=== PATIENT | male | born 1955 | race African-American/Black ===

== ENCOUNTER 2017-04-30 09:05 | Inpatient (IN) ==
[2017-04-30 11:05] LABS: Apearance,Urine Slightly Hazy (Clear); Bacteria,Urine Occasional /HPF (Few); Bilirubin,Urine Negative (Negative); Blood, Urine Large mg/dL (Negative); Glucose,Urine (UA) 50 mg/dL (Negative); Ketones,Urine Negative (Negative); Mucus,Urine Occasional /LPF (Occasional); Nitrite,Urine Negative (Negative); Protein,Urine Negative; RBC,Urine 18 /HPF (0-4); Squamous Epithelial Cell,Urine Occasional /HPF (0-10); Urine Color Yellow (Yellow); Urine Specific Gravity 1.009 (1.001-1.035); Urine Urobilinogen < 2.0 EU/DL (0.2-1.0); WBC,Urine 6 /HPF (0-6)
[2017-04-30 11:38] LABS: Basophils % 0.2 % (0.0-0.8); Hematocrit 45.2 VOL% (42.0-52.0); Hemoglobin 15.4 GM/DL (14.0-18.0); Immature Granulocytes % 0.5 %; Immature Granulocytes Absolute 0.06 #; Lymphocytes # 1.1 10*3/uL (1.4-4.0); Lymphocytes % 8.5 % (21.2-54.2); Mean Corpuscular HGB Conc 34.1 GM/DL (32-36); Mean Corpuscular Hemoglobin 28 PG (27-34); Mean Corpuscular Volume 82.2 FL (87-102); Mean Platelet Volume 9.7 FL (9.6-12.0); Monocytes # 1.1 10*3/uL (0.11-0.8); Monocytes % 8.1 % (1.7-12.7); Neutrophils # 10.9 10*3/uL (1.4-7.4); Neutrophils % 82.7 % (38.7-73.9); Platelet Count 241 T/CUMM (130-400); Red Cell Distribution Width 14.1 % (9.3-17.3); White Blood Count 13.2 T/CUMM (4-12)
[2017-04-30 12:02] LABS: Bilirubin,Total 0.9 MG/DL (0.2-1.0); Calcium 8.6 MG/DL (8.5-10.1); Osmolality,Calculated 283.7 MOS/KG (273-304); Potassium 3.8 MMOL/L (3.5-5.1); Total Protein 7.5 G/DL (6.4-8.3)
[2017-04-30] MEDS ORDERED: SODIUM CHLORIDE 0.9% 500 ML IV STA (12:33)
[2017-04-30] MEDS ORDERED: ACETAMINOPHEN 325 MG TABLET PO PRN (13:44)
[2017-04-30] MEDS ORDERED: MORPHINE 2 MG/1 ML SYRINGE IV PRN (13:44)
[2017-04-30] MEDS ORDERED: ONDANSETRON 4 MG/2 ML VIAL IV PRN (13:44)
[2017-04-30] MEDS: SODIUM CHLORIDE 0.9% 1,000 ML IV SCH (14:33)
[2017-04-30] MEDS: hydrALAZINE 20 MG/1 ML VIAL IV PRN (14:52)
[2017-04-30] MEDS ORDERED: CIPROFLOXACIN INJ 400 MG in PREMIX 1 EACH IV SCH (16:00)
[2017-04-30] MEDS: DUTASTERIDE 0.5 MG CAPSULE PO SCH (20:45)
[2017-04-30] MEDS: TAMSULOSIN 0.4 MG CAPSULE PO SCH (20:45)
[2017-05-01] MEDS: SODIUM CHLORIDE 0.9% 1,000 ML IV SCH ×3 (00:12→20:58)
[2017-05-01 06:16] LABS: Basophils % 0.3 % (0.0-0.8); Eosinophils # 0.2 10*3/uL (0.0-0.87); Eosinophils % 2.6 % (0.00-10.9); Hemoglobin 14.9 GM/DL (14.0-18.0); Immature Granulocytes % 0.7 %; Immature Granulocytes Absolute 0.06 #; Lymphocytes # 1.1 10*3/uL (1.4-4.0); Lymphocytes % 11.8 % (21.2-54.2); Mean Corpuscular HGB Conc 33.1 GM/DL (32-36); Mean Corpuscular Hemoglobin 28 PG (27-34); Mean Corpuscular Volume 83.5 FL (87-102); Mean Platelet Volume 9.9 FL (9.6-12.0); Monocytes # 0.7 10*3/uL (0.11-0.8); Monocytes % 7.9 % (1.7-12.7); Neutrophils % 76.7 % (38.7-73.9); Platelet Count 242 T/CUMM (130-400); Red Blood Count 5.39 MC/CUMM (3.8-5.5); Red Cell Distribution Width 14.4 % (9.3-17.3); White Blood Count 9.2 T/CUMM (4-12)
[2017-05-01 06:46] LABS: Albumin 3.3 G/DL (3.4-5.0); Bilirubin,Total 0.8 MG/DL (0.2-1.0); Calcium 8.2 MG/DL (8.5-10.1); Osmolality,Calculated 295.1 MOS/KG (273-304); Potassium 3.7 MMOL/L (3.5-5.1); Risk Ratio 4.78; Total Protein 6.4 G/DL (6.4-8.3); VLDL CHOLESTEROL 21.8 MG/DL
[2017-05-01] MEDS: TAMSULOSIN 0.4 MG CAPSULE PO SCH ×2 (08:48→20:58)
[2017-05-01] MEDS: PANTOPRAZOLE 40 MG TABLET PO SCH (08:48)
[2017-05-01] MEDS: CIPROFLOXACIN INJ 400 MG in PREMIX 1 EACH IV SCH ×2 (09:21→20:59)
[2017-05-01] MEDS: NIFEdipine 10 MG CAPSULE PO PRN (18:23)
[2017-05-01] MEDS: DUTASTERIDE 0.5 MG CAPSULE PO SCH (20:57)
[2017-05-02 05:16] LABS: Basophils % 0.2 % (0.0-0.8); Eosinophils % 0.1 % (0.00-10.9); Hematocrit 42.9 VOL% (42.0-52.0); Hemoglobin 13.7 GM/DL (14.0-18.0); Immature Granulocytes % 0.7 %; Immature Granulocytes Absolute 0.07 #; Lymphocytes # 0.7 10*3/uL (1.4-4.0); Lymphocytes % 7.2 % (21.2-54.2); Mean Corpuscular HGB Conc 31.9 GM/DL (32-36); Mean Corpuscular Hemoglobin 27 PG (27-34); Mean Corpuscular Volume 84.8 FL (87-102); Mean Platelet Volume 9.4 FL (9.6-12.0); Monocytes # 0.8 10*3/uL (0.11-0.8); Monocytes % 8.8 % (1.7-12.7); Neutrophils # 7.8 10*3/uL (1.4-7.4); Platelet Count 223 T/CUMM (130-400); Red Blood Count 5.06 MC/CUMM (3.8-5.5); Red Cell Distribution Width 14.2 % (9.3-17.3); White Blood Count 9.3 T/CUMM (4-12)
[2017-05-02 05:41] LABS: Calcium 8.2 MG/DL (8.5-10.1); Potassium 3.7 MMOL/L (3.5-5.1)
[2017-05-02] MEDS: SODIUM CHLORIDE 0.9% 1,000 ML IV SCH ×2 (08:50→20:11)
[2017-05-02] MEDS: TAMSULOSIN 0.4 MG CAPSULE PO SCH ×2 (09:20→20:59)
[2017-05-02] MEDS: CIPROFLOXACIN INJ 400 MG in PREMIX 1 EACH IV SCH ×2 (09:20→21:00)
[2017-05-02] MEDS: NIFEdipine 10 MG CAPSULE PO PRN ×2 (09:20→17:30)
[2017-05-02] MEDS: PANTOPRAZOLE 40 MG TABLET PO SCH (09:20)
[2017-05-02] MEDS: DUTASTERIDE 0.5 MG CAPSULE PO SCH (20:59)
[2017-05-03 04:33] LABS: Calcium 8.4 MG/DL (8.5-10.1); Osmolality,Calculated 283.1 MOS/KG (273-304); Potassium 3.7 MMOL/L (3.5-5.1)
[2017-05-03] MEDS: SODIUM CHLORIDE 0.9% 1,000 ML IV SCH ×2 (07:43→19:20)
[2017-05-03] MEDS: TAMSULOSIN 0.4 MG CAPSULE PO SCH ×2 (09:12→20:43)
[2017-05-03] MEDS: PANTOPRAZOLE 40 MG TABLET PO SCH (09:13)
[2017-05-03] MEDS: hydrALAZINE 20 MG/1 ML VIAL IV PRN (09:13)
[2017-05-03] MEDS: CIPROFLOXACIN INJ 400 MG in PREMIX 1 EACH IV SCH ×2 (09:13→20:43)
[2017-05-03] MEDS: CARVEDILOL 25 MG TABLET PO SCH ×2 (13:16→18:37)
[2017-05-03] MEDS ORDERED: NIFEdipine 10 MG CAPSULE PO PRN (14:16)
[2017-05-03] MEDS: LISINOPRIL 10 MG TABLET PO SCH (15:08)
[2017-05-03] MEDS: DUTASTERIDE 0.5 MG CAPSULE PO SCH (20:43)
[2017-05-04 05:11] LABS: Basophils # 0.1 10*3/uL (0.0-0.2); Basophils % 0.8 % (0.0-0.8); Eosinophils % 0.1 % (0.00-10.9); Hematocrit 43.1 VOL% (42.0-52.0); Hemoglobin 13.8 GM/DL (14.0-18.0); Immature Granulocytes % 0.7 %; Immature Granulocytes Absolute 0.06 #; Lymphocytes # 1.4 10*3/uL (1.4-4.0); Lymphocytes % 15.3 % (21.2-54.2); Mean Corpuscular Hemoglobin 27 PG (27-34); Mean Corpuscular Volume 85.5 FL (87-102); Mean Platelet Volume 9.4 FL (9.6-12.0); Monocytes # 0.6 10*3/uL (0.11-0.8); Monocytes % 6.5 % (1.7-12.7); Neutrophils % 76.6 % (38.7-73.9); Platelet Count 264 T/CUMM (130-400); Red Blood Count 5.04 MC/CUMM (3.8-5.5); Red Cell Distribution Width 14.4 % (9.3-17.3); White Blood Count 9.1 T/CUMM (4-12)
[2017-05-04 05:24] LABS: PT Patient Result 10.9 SECS
[2017-05-04 05:35] LABS: Calcium 8.6 MG/DL (8.5-10.1); Osmolality,Calculated 281.3 MOS/KG (273-304); Potassium 3.9 MMOL/L (3.5-5.1)
[2017-05-04 05:40] LABS: Atypical Lymphocytes Few; Eosinophils 4 % (0-10); Lymphocytes 19 % (20-55); Segmented Neutrophils 71 % (50-85); Total Cells Counted 100
[2017-05-04 05:43] LABS: Hypochromasia 1+
[2017-05-04 05:44] LABS: Platelet Estimate Normal
[2017-05-04] MEDS: SODIUM CHLORIDE 0.9% 1,000 ML IV SCH (05:51)
[2017-05-04] MEDS: CIPROFLOXACIN INJ 400 MG in PREMIX 1 EACH IV SCH ×2 (08:28→21:03)
[2017-05-04] MEDS: LISINOPRIL 10 MG TABLET PO SCH (08:32)
[2017-05-04] MEDS: CARVEDILOL 25 MG TABLET PO SCH ×2 (08:32→16:12)
[2017-05-04] MEDS: PANTOPRAZOLE 40 MG TABLET PO SCH (08:33)
[2017-05-04] MEDS: TAMSULOSIN 0.4 MG CAPSULE PO SCH ×2 (08:33→21:02)
[2017-05-04] MEDS: NIFEdipine 10 MG CAPSULE PO PRN (08:37)
[2017-05-04] MEDS ORDERED: cefTRIAXone 1,000 MG in SYRINGE 1 EACH IV ONE (13:00)
[2017-05-04] MEDS ORDERED: ALBUTEROL/IPRATROPIUM 3 ML NEB RESP TX ONE (13:01)
[2017-05-04] MEDS ORDERED: MIDAZOLAM 2 MG/2 ML VIAL ONE (14:52)
[2017-05-04] MEDS ORDERED: PROPOFOL 200 MG/20 ML VIAL IV ONE (14:52)
[2017-05-04] MEDS ORDERED: fentaNYL 100 MCG/2 ML VIAL ONE (14:52)
[2017-05-04] MEDS ORDERED: SEVOFLURANE 1 UNIT/15 MINUTE INH ONE (14:52)
[2017-05-04] MEDS ORDERED: ONDANSETRON 4 MG/2 ML VIAL ONE (14:53)
[2017-05-04] MEDS ORDERED: ePHEDrine 50 MG/ML AMP ONE (14:53)
[2017-05-04] MEDS: NIFEdipine 10 MG CAPSULE PO SCH ×2 (15:44→22:10)
[2017-05-04] MEDS: DUTASTERIDE 0.5 MG CAPSULE PO SCH (21:02)
[2017-05-05] MEDS: SODIUM CHLORIDE 0.9% 1,000 ML IV SCH (02:00)
[2017-05-05] MEDS: NIFEdipine 10 MG CAPSULE PO SCH ×3 (05:32→21:36)
[2017-05-05 06:27] LABS: Basophils # 0.1 10*3/uL (0.0-0.2); Basophils % 0.5 % (0.0-0.8); Eosinophils # 0.4 10*3/uL (0.0-0.87); Eosinophils % 3.6 % (0.00-10.9); Hematocrit 45.9 VOL% (42.0-52.0); Hemoglobin 15.1 GM/DL (14.0-18.0); Immature Granulocytes % 0.8 %; Immature Granulocytes Absolute 0.09 #; Lymphocytes # 1.1 10*3/uL (1.4-4.0); Lymphocytes % 9.8 % (21.2-54.2); Mean Corpuscular HGB Conc 32.9 GM/DL (32-36); Mean Corpuscular Hemoglobin 28 PG (27-34); Mean Corpuscular Volume 83.9 FL (87-102); Mean Platelet Volume 9.9 FL (9.6-12.0); Monocytes # 0.6 10*3/uL (0.11-0.8); Monocytes % 5.2 % (1.7-12.7); Neutrophils # 8.8 10*3/uL (1.4-7.4); Neutrophils % 80.1 % (38.7-73.9); Platelet Count 298 T/CUMM (130-400); Red Blood Count 5.47 MC/CUMM (3.8-5.5); Red Cell Distribution Width 14.6 % (9.3-17.3)
[2017-05-05 07:11] LABS: Albumin 3.1 G/DL (3.4-5.0); Bilirubin,Total 0.7 MG/DL (0.2-1.0); Calcium 8.2 MG/DL (8.5-10.1); Osmolality,Calculated 281.4 MOS/KG (273-304); Potassium 3.8 MMOL/L (3.5-5.1); Total Protein 6.5 G/DL (6.4-8.3)
[2017-05-05] MEDS: LISINOPRIL 10 MG TABLET PO SCH (08:08)
[2017-05-05] MEDS: TAMSULOSIN 0.4 MG CAPSULE PO SCH ×2 (08:09→21:36)
[2017-05-05] MEDS: PANTOPRAZOLE 40 MG TABLET PO SCH (08:09)
[2017-05-05] MEDS: CARVEDILOL 25 MG TABLET PO SCH ×2 (08:09→16:01)
[2017-05-05] MEDS: CIPROFLOXACIN INJ 400 MG in PREMIX 1 EACH IV SCH ×2 (08:12→21:35)
[2017-05-05] MEDS: DUTASTERIDE 0.5 MG CAPSULE PO SCH (21:36)
[2017-05-06] MEDS: SODIUM CHLORIDE 0.9% 1,000 ML IV SCH ×3 (02:00→22:11)
[2017-05-06] MEDS: NIFEdipine 10 MG CAPSULE PO SCH ×3 (05:33→21:05)
[2017-05-06 07:02] LABS: Basophils % 0.4 % (0.0-0.8); Hematocrit 46.2 VOL% (42.0-52.0); Hemoglobin 14.7 GM/DL (14.0-18.0); Immature Granulocytes % 0.6 %; Immature Granulocytes Absolute 0.06 #; Lymphocytes # 1.3 10*3/uL (1.4-4.0); Lymphocytes % 13.3 % (21.2-54.2); Mean Corpuscular HGB Conc 31.8 GM/DL (32-36); Mean Corpuscular Hemoglobin 27 PG (27-34); Mean Platelet Volume 9.5 FL (9.6-12.0); Monocytes # 0.8 10*3/uL (0.11-0.8); Monocytes % 8.6 % (1.7-12.7); Neutrophils # 7.4 10*3/uL (1.4-7.4); Neutrophils % 77.1 % (38.7-73.9); Platelet Count 290 T/CUMM (130-400); Red Blood Count 5.37 MC/CUMM (3.8-5.5); Red Cell Distribution Width 14.9 % (9.3-17.3); White Blood Count 9.6 T/CUMM (4-12)
[2017-05-06 07:38] LABS: Albumin 3.3 G/DL (3.4-5.0); Bilirubin,Total 0.4 MG/DL (0.2-1.0); Calcium 8.6 MG/DL (8.5-10.1); Osmolality,Calculated 275.7 MOS/KG (273-304); Total Protein 6.8 G/DL (6.4-8.3)
[2017-05-06] MEDS: TAMSULOSIN 0.4 MG CAPSULE PO SCH ×2 (09:48→20:40)
[2017-05-06] MEDS: PANTOPRAZOLE 40 MG TABLET PO SCH (09:49)
[2017-05-06] MEDS: LISINOPRIL 10 MG TABLET PO SCH (09:49)
[2017-05-06] MEDS: CARVEDILOL 25 MG TABLET PO SCH ×2 (09:49→17:53)
[2017-05-06] MEDS: CIPROFLOXACIN INJ 400 MG in PREMIX 1 EACH IV SCH ×2 (09:50→20:43)
[2017-05-06] MEDS: DUTASTERIDE 0.5 MG CAPSULE PO SCH (20:40)
[2017-05-07 07:17] LABS: Calcium 8.4 MG/DL (8.5-10.1); Osmolality,Calculated 281.4 MOS/KG (273-304); Potassium 3.9 MMOL/L (3.5-5.1)
[2017-05-07 08:10] VITALS: BP 142/74
[2017-05-07] MEDS: LISINOPRIL 10 MG TABLET PO SCH (09:01)
[2017-05-07] MEDS: PANTOPRAZOLE 40 MG TABLET PO SCH (09:01)
[2017-05-07] MEDS: CARVEDILOL 25 MG TABLET PO SCH (09:01)
[2017-05-07] MEDS: TAMSULOSIN 0.4 MG CAPSULE PO SCH (09:01)
[2017-05-07] MEDS: CIPROFLOXACIN INJ 400 MG in PREMIX 1 EACH IV SCH (09:01)
== END 2017-05-07 11:15 | disposition home or self-care (01) | DRG 726 ==
LOC: N.ED 09:05 → N.EDINP 12:34 → SUATTDRO 12:34 → N.EDINP 13:53 → N.2E 14:04
PROVIDERS: ADMIT Internal Medicine; ATTEND Family Medicine

== ENCOUNTER 2017-07-28 05:45 | Inpatient (IN) ==
[2017-07-16 10:27] LABS: Basophils % 0.4 % (0.0-0.8); Eosinophils # 0.3 10*3/uL (0.0-0.87); Eosinophils % 3.4 % (0.00-10.9); Hematocrit 39.1 VOL% (42.0-52.0); Hemoglobin 12.7 GM/DL (14.0-18.0); Immature Granulocytes % 0.3 %; Immature Granulocytes Absolute 0.02 #; Lymphocytes # 1.8 10*3/uL (1.4-4.0); Mean Corpuscular HGB Conc 32.5 GM/DL (32-36); Mean Corpuscular Hemoglobin 27 PG (27-34); Mean Corpuscular Volume 83.7 FL (87-102); Mean Platelet Volume 9.4 FL (9.6-12.0); Monocytes # 0.4 10*3/uL (0.11-0.8); Monocytes % 5.1 % (1.7-12.7); Neutrophils # 5.4 10*3/uL (1.4-7.4); Neutrophils % 67.8 % (38.7-73.9); Platelet Count 264 T/CUMM (130-400); Red Blood Count 4.67 MC/CUMM (3.8-5.5); Red Cell Distribution Width 14.2 % (9.3-17.3); White Blood Count 7.9 T/CUMM (4-12)
[2017-07-16 11:03] LABS: Albumin 3.5 G/DL (3.4-5.0); Bilirubin,Total 0.7 MG/DL (0.2-1.0); Calcium 8.9 MG/DL (8.5-10.1); Osmolality,Calculated 275.5 MOS/KG (273-304); Potassium 3.9 MMOL/L (3.5-5.1); Total Protein 7.7 G/DL (6.4-8.3)
[2017-07-28] MEDS ORDERED: cefTRIAXone 1,000 MG in SYRINGE 1 EACH IV ONE (06:00)
[2017-07-28] MEDS ORDERED: GENTAMICIN INJ 120 MG in PREMIX 1 EACH IV ONE ×2 (06:00→07:30)
[2017-07-28] MEDS: LACTATED RINGERS 1,000 ML IV SCH ×3 (06:30→12:30)
[2017-07-28] MEDS ORDERED: cefTRIAXone 1,000 MG VIAL ONE (07:02)
[2017-07-28] MEDS ORDERED: GENTAMICIN 80 MG/2 ML VIAL ONE ×2 (07:12→07:13)
[2017-07-28] MEDS ORDERED: GENTAMICIN IV ONE ×2 (07:22)
[2017-07-28] MEDS ORDERED: ePHEDrine 50 MG/ML AMP ONE (10:10)
[2017-07-28] MEDS ORDERED: SUGAMMADEX 200 MG/2 ML VIAL IV ONE (10:11)
[2017-07-28] MEDS ORDERED: MORPHINE 10 MG/1 ML VIAL IV PRN (13:32)
[2017-07-28] MEDS ORDERED: PROMETHAZINE 25 MG/1 ML VIAL IM PRN (13:32)
[2017-07-28] MEDS ORDERED: BELLADONNA/OPIUM 30 MG SUPP RECTAL PRN (13:32)
[2017-07-28] MEDS ORDERED: ONDANSETRON 4 MG/2 ML VIAL IV PRN (13:32)
[2017-07-28] MEDS ORDERED: LACTULOSE 20 GM/30 ML UDCUP PO PRN (13:32)
[2017-07-28] MEDS ORDERED: hydrALAZINE 25 MG TABLET PO PRN (13:39)
[2017-07-28] MEDS ORDERED: diphenhydrAMINE 50 MG/1 ML VIAL IV PRN (13:40)
[2017-07-28] MEDS ORDERED: ALBUMIN 5% 12.5 GM/250 ML VIAL IV ONE (13:59)
[2017-07-28] MEDS ORDERED: PROPOFOL 200 MG/20 ML VIAL IV ONE (13:59)
[2017-07-28] MEDS ORDERED: DESFLURANE 1 UNIT/15 MINUTE INH ONE (13:59)
[2017-07-28] MEDS ORDERED: SUFentanil 50 MCG/ML AMP ONE (14:00)
[2017-07-28] MEDS ORDERED: EPINEPHrine 1 MG/ML VIAL ONE (14:00)
[2017-07-28] MEDS ORDERED: ROCURONIUM 100 MG/10 ML VIAL IV ONE (14:01)
[2017-07-28] MEDS ORDERED: GLYCOPYRROLATE 0.4 MG/2 ML VIAL ONE (14:01)
[2017-07-28] MEDS ORDERED: SODIUM CHLORIDE 0.9% 200 ML IV ONE (14:01)
[2017-07-28] MEDS ORDERED: DEXAMETHASONE 10 MG/1 ML VIAL ONE (14:01)
[2017-07-28] MEDS ORDERED: LACTATED RINGERS 2,000 ML IV ONE (14:01)
[2017-07-28] MEDS ORDERED: PHENYLEPHRINE 10 MG/1 ML VIAL IV ONE (14:01)
[2017-07-28 14:47] LABS: Hematocrit 38.9 VOL% (42.0-52.0); Hemoglobin 12.4 GM/DL (14.0-18.0)
[2017-07-28] MEDS: ACETAMINOPHEN 325 MG TABLET PO SCH ×2 (15:46→22:51)
[2017-07-28] MEDS: NIFEdipine 10 MG CAPSULE PO SCH ×2 (15:46→22:51)
[2017-07-28] MEDS: LEVOFLOXACIN INJ 500 MG in PREMIX 1 EACH IV SCH (15:48)
[2017-07-28] MEDS ORDERED: POTASSIUM CHLORIDE INJ 10 MEQ in SODIUM CHLORIDE 0.9% 1,000 ML IV SCH (16:00)
[2017-07-28] MEDS: CARVEDILOL 25 MG TABLET PO SCH (17:04)
[2017-07-28] MEDS: SODIUM CHLOR 0.9% KCL 20 MEQ 20 MEQ/1,000 ML BAG IV SCH (17:05)
[2017-07-28] MEDS: DOCUSATE SODIUM 100 MG CAPSULE PO SCH (22:51)
[2017-07-28] MEDS: DUTASTERIDE 0.5 MG CAPSULE PO SCH (22:52)
[2017-07-28] MEDS: FAMOTIDINE 20 MG TABLET PO SCH (22:52)
[2017-07-29] MEDS: ACETAMINOPHEN 325 MG TABLET PO SCH ×4 (04:06→21:34)
[2017-07-29 06:32] LABS: Basophils % 0.1 % (0.0-0.8); Hematocrit 35.2 VOL% (42.0-52.0); Hemoglobin 11.4 GM/DL (14.0-18.0); Immature Granulocytes % 0.5 %; Immature Granulocytes Absolute 0.08 #; Lymphocytes # 0.9 10*3/uL (1.4-4.0); Lymphocytes % 6.2 % (21.2-54.2); Mean Corpuscular HGB Conc 32.4 GM/DL (32-36); Mean Corpuscular Hemoglobin 27 PG (27-34); Mean Platelet Volume 10.1 FL (9.6-12.0); Monocytes # 0.8 10*3/uL (0.11-0.8); Monocytes % 5.3 % (1.7-12.7); Neutrophils # 12.8 10*3/uL (1.4-7.4); Neutrophils % 87.9 % (38.7-73.9); Platelet Count 250 T/CUMM (130-400); Red Blood Count 4.24 MC/CUMM (3.8-5.5); Red Cell Distribution Width 14.7 % (9.3-17.3); White Blood Count 14.6 T/CUMM (4-12)
[2017-07-29] MEDS: NIFEdipine 10 MG CAPSULE PO SCH ×3 (07:09→21:34)
[2017-07-29] MEDS ORDERED: BISACODYL 10 MG SUPP RECTAL ONE (08:08)
[2017-07-29] MEDS: DOCUSATE SODIUM 100 MG CAPSULE PO SCH ×2 (09:28→21:34)
[2017-07-29] MEDS: OXYBUTYNIN XL 5 MG TABLET PO SCH (09:28)
[2017-07-29] MEDS: CARVEDILOL 25 MG TABLET PO SCH ×2 (09:48→16:33)
[2017-07-29] MEDS: LEVOFLOXACIN INJ 500 MG in PREMIX 1 EACH IV SCH (14:30)
[2017-07-29] MEDS: SODIUM CHLOR 0.9% KCL 20 MEQ 20 MEQ/1,000 ML BAG IV SCH ×2 (15:32→21:35)
[2017-07-29] MEDS: DUTASTERIDE 0.5 MG CAPSULE PO SCH (21:34)
[2017-07-29] MEDS: FAMOTIDINE 20 MG TABLET PO SCH (21:34)
[2017-07-30] MEDS: ACETAMINOPHEN 325 MG TABLET PO SCH ×2 (03:50→09:14)
[2017-07-30] MEDS: NIFEdipine 10 MG CAPSULE PO SCH ×2 (06:30→15:13)
[2017-07-30] MEDS: CARVEDILOL 25 MG TABLET PO SCH (09:14)
[2017-07-30] MEDS: DOCUSATE SODIUM 100 MG CAPSULE PO SCH (09:14)
[2017-07-30] MEDS: OXYBUTYNIN XL 5 MG TABLET PO SCH (09:14)
[2017-07-30 12:46] VITALS: BP 133/67
== END 2017-07-30 15:23 | disposition home or self-care (01) | DRG 717 ==
LOC: N.OR 05:45 → N.SDSINP 05:46 → N.5E 14:55
PROVIDERS: ADMIT Surgery; ATTEND Surgery

== ENCOUNTER 2019-01-11 09:12 | Inpatient (IN) ==
[2019-01-11] MEDS ORDERED: ALBUTEROL 2.5 MG/3 ML NEB RESP TX STA (09:52)
[2019-01-11 09:58] LABS: Basophils % 0.2 % (0.0-0.8); Eosinophils % 0.2 % (0.00-10.9); Hemoglobin 15.4 GM/DL (14.0-18.0); Immature Granulocytes % 1.3 %; Immature Granulocytes Absolute 0.17 #; Lymphocytes # 1.7 10*3/uL (1.4-4.0); Lymphocytes % 13.1 % (21.2-54.2); Mean Corpuscular HGB Conc 32.1 GM/DL (32-36); Mean Corpuscular Volume 86.2 FL (87-102); Mean Platelet Volume 9.5 FL (9.6-12.0); Monocytes % 2.1 % (1.7-12.7); Neutrophils % 83.1 % (38.7-73.9); Platelet Count 272 T/CUMM (130-400); Red Blood Count 5.57 MC/CUMM (3.8-5.5); Red Cell Distribution Width 14.4 % (9.3-17.3); White Blood Count 13.3 T/CUMM (4-12)
[2019-01-11 10:11] LABS: Albumin 4.1 G/DL (3.4-5.0); Bilirubin,Total 0.5 MG/DL (0.2-1.0); Osmolality,Calculated 288.3 MOS/KG (273-304); Total Protein 7.4 G/DL (6.4-8.3)
[2019-01-11 11:36] LABS: Apearance,Urine CLEAR (Clear); Bilirubin,Urine Negative (Negative); Blood, Urine Negative (Negative); Glucose,Urine (UA) Negative (Negative); Hyaline Casts,Urine 16 /LPF (0-3); Ketones,Urine Negative (Negative); Mucus,Urine Occasional /LPF (Occasional); Nitrite,Urine Negative (Negative); Protein,Urine Negative; RBC,Urine 2 /HPF (0-4); Urine Color Yellow (Yellow); Urine Specific Gravity 1.013 (1.001-1.035); Urine Urobilinogen < 2.0 EU/DL (0.2-1.0); WBC,Urine 1 /HPF (0-6)
[2019-01-11 14:27] LABS: Risk Ratio 3.83; VLDL CHOLESTEROL 23.6 MG/DL
[2019-01-11] MEDS: ENOXAPARIN 150 MG/ML SYRINGE SUBCUT SCH (16:35)
[2019-01-11] MEDS: LACTATED RINGERS 1,000 ML IV SCH (16:35)
[2019-01-11] MEDS: carvediloL 25 MG TABLET PO SCH (16:35)
[2019-01-11 18:30] LABS: PT Patient Result 10.6 SECS (9.6-12.2); Partial Thromboplastin Time 25.7 SECS (20.8-36.0)
[2019-01-11 18:36] LABS: Troponin I < 0.015 NG/ML (0.00-0.045)
[2019-01-11] MEDS: LEVOFLOXACIN INJ 500 MG in PREMIX 1 EACH IV SCH (20:15)
[2019-01-11 21:40] LABS: Troponin I < 0.015 NG/ML (0.00-0.045)
[2019-01-11] MEDS: SOTALOL 80 MG TABLET PO SCH (22:50)
[2019-01-12 00:34] LABS: Troponin I < 0.015 NG/ML (0.00-0.045)
[2019-01-12] MEDS: LACTATED RINGERS 1,000 ML IV SCH ×2 (05:01→19:35)
[2019-01-12 05:45] LABS: Basophils % 0.3 % (0.0-0.8); Hematocrit 45.1 VOL% (42.0-52.0); Hemoglobin 14.6 GM/DL (14.0-18.0); Immature Granulocytes % 0.8 %; Immature Granulocytes Absolute 0.11 #; Lymphocytes % 21.7 % (21.2-54.2); Mean Corpuscular HGB Conc 32.4 GM/DL (32-36); Mean Corpuscular Volume 85.9 FL (87-102); Mean Platelet Volume 10.3 FL (9.6-12.0); Monocytes % 6.8 % (1.7-12.7); Neutrophils % 70.4 % (38.7-73.9); Platelet Count 264 T/CUMM (130-400); Red Blood Count 5.25 MC/CUMM (3.8-5.5); Red Cell Distribution Width 14.6 % (9.3-17.3); White Blood Count 13.7 T/CUMM (4-12)
[2019-01-12 06:15] LABS: Calcium 8.4 MG/DL (8.5-10.1); Osmolality,Calculated 284.3 MOS/KG (273-304)
[2019-01-12] MEDS: ENOXAPARIN 150 MG/ML SYRINGE SUBCUT SCH (07:00)
[2019-01-12] MEDS ORDERED: POTASSIUM CHLORIDE 20 MEQ TABLET PO ONE (07:39)
[2019-01-12] MEDS: SOTALOL 80 MG TABLET PO SCH ×2 (09:09→21:42)
[2019-01-12] MEDS: carvediloL 25 MG TABLET PO SCH ×2 (09:10→17:22)
[2019-01-12] MEDS: APIXABAN 5 MG TABLET PO SCH ×2 (10:26→21:42)
[2019-01-12] MEDS: LEVOFLOXACIN INJ 500 MG in PREMIX 1 EACH IV SCH (21:42)
[2019-01-12] MEDS: ASCORBIC ACID 500 MG TABLET PO SCH (21:42)
[2019-01-13 05:01] LABS: Basophils # 0.1 10*3/uL (0.0-0.2); Basophils % 0.6 % (0.0-0.8); Eosinophils % 0.3 % (0.00-10.9); Hematocrit 48.9 VOL% (42.0-52.0); Hemoglobin 15.5 GM/DL (14.0-18.0); Immature Granulocytes Absolute 0.12 #; Lymphocytes # 2.9 10*3/uL (1.4-4.0); Lymphocytes % 24.9 % (21.2-54.2); Mean Corpuscular HGB Conc 31.7 GM/DL (32-36); Mean Corpuscular Volume 86.5 FL (87-102); Mean Platelet Volume 9.6 FL (9.6-12.0); Monocytes % 6.1 % (1.7-12.7); Neutrophils % 67.1 % (38.7-73.9); Platelet Count 289 T/CUMM (130-400); Red Blood Count 5.65 MC/CUMM (3.8-5.5); Red Cell Distribution Width 14.6 % (9.3-17.3); White Blood Count 11.7 T/CUMM (4-12)
[2019-01-13 05:34] LABS: Calcium 8.9 MG/DL (8.5-10.1); Osmolality,Calculated 282.4 MOS/KG (273-304)
[2019-01-13] MEDS: APIXABAN 5 MG TABLET PO SCH (09:02)
[2019-01-13] MEDS: ASCORBIC ACID 500 MG TABLET PO SCH (09:02)
[2019-01-13] MEDS: carvediloL 25 MG TABLET PO SCH (09:02)
[2019-01-13] MEDS: SOTALOL 80 MG TABLET PO SCH (09:02)
[2019-01-13 12:57] VITALS: BP 156/83
== END 2019-01-13 12:46 | disposition home or self-care (01) | DRG 308 ==
LOC: EDUNIT# → EDBD → N.EDINP 09:12 → N.ED 09:12 → N.EDINP 13:02 → N.TELES 13:08
PROVIDERS: ADMIT Hospitalist; ATTEND Hospitalist